=== PATIENT | male | born 1975 | race Caucasian/White ===

== ENCOUNTER 2017-07-16 18:57 | Emergency (ER) | payer OTHER ==
[2017-07-16 19:07] VITALS: BP 134/85; PULSE 109; RESP 18; TEMP 97.6
[2017-07-16] MEDS ORDERED: DIPH,PERTUS(ACELL)TETVAC-LF 0.5 ML VIAL IM ONE (19:34)
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
== END 2017-07-16 19:54 | disposition home or self-care (01) ==
LOC: EC 18:57
DX: S01.411A Laceration without foreign body of right cheek and temporomandibular area, initial encounter (principal); F17.200 Nicotine dependence, unspecified, uncomplicated; Z23 Encounter for immunization; V49.9XXA Car occupant (driver) (passenger) injured in unspecified traffic accident, initial encounter; Y92.89 Other specified places as the place of occurrence of the external cause
CPT/HCPCS: 12011; 90471; 90715; 99283

== ENCOUNTER 2019-04-16 02:09 | Emergency (ER) | payer OTHER ==
[2019-04-16 02:18] VITALS: BP 131/86; PULSE 104; RESP 20; TEMP 98.2
== END 2019-04-16 03:34 | disposition home or self-care (01) ==
LOC: EC 02:09
DX: Z02.89 Encounter for other administrative examinations (principal)

== ENCOUNTER 2021-02-23 01:26 | Emergency (ER) | payer BC ==
[2021-02-23 01:35] VITALS: BP 143/91; PULSE 78; RESP 18; TEMP 99.1
[2021-02-23] MEDS ORDERED: PENICILLIN VK 500MG STARTER 4 TAB BTL PO STA (02:02)
[2021-02-23] MEDS ORDERED: IBUPROFEN 600 MG TAB PO STA (02:27)
--- NOTE | 2021-02-23 02:28 | ED ---
General Adult HPI - General Chief complaint: Dental/Oral Stated complaint: Toothache/Confused Time Seen by Provider: 02/23/21 01:37 Source: patient, RN notes reviewed Mode of arrival: ambulatory Limitations: no limitations - History of Present Illness Initial comments: 45-year-old male without any significant past medical history presents to the emergency department for a chief complaint of facial pain. Patient reports that a couple weeks ago he broke a tooth on the right side of his mouth. States that he put putty in it to cover it himself. States he has been putting off seeing the dentist. Patient states the day on his home from work he started to feel sharp pain on the return of his face and radiated to his head and neck. States that the pain was making him feel dazed and confused. Therefore he presented to the emergency room. States actually feels much better at this time.Patient has no other complaints at this time including shortness of breath, chest pain, abdominal pain, nausea or vomiting, or visual changes. - Related Data Previous Rx's Medication Instructions Recorded Penicillin V Potassium [Pen Vee K] 500 mg PO Q6H 10 Days #40 tablet 02/23/21 Allergies Allergy/AdvReac Type Severity Reaction Status Date / Time No Known Allergies Allergy Verified 02/23/21 01:35 Review of Systems ROS Statement: Those systems with pertinent positive or pertinent negative responses have been documented in the HPI. ROS Other: All systems not noted in ROS Statement are negative. Past Medical History Past Medical History: No Reported History History of Any Multi-Drug Resistant Organisms: None Reported Past Surgical History: No Surgical Hx Reported Past Psychological History: No Psychological Hx Reported Smoking Status: Current every day smoker Past Alcohol Use History: Daily Past Drug Use History: None Reported General Exam Limitations: no limitations General appearance: alert, in no apparent distress Head exam: Present: atraumatic, normocephalic, normal inspection Eye exam: Present: normal appearance, PERRL, EOMI. Absent: scleral icterus, conjunctival injection, periorbital swelling ENT exam: Present: normal exam, mucous membranes moist. Absent: normal oropharynx (tooth 30 has large cavity. No purulent drainage. Tenderness to the lateral aspect with palpation. No sublingual edema.) Neck exam: Present: normal inspection, full ROM. Absent: tenderness (No anterior or midline cervical neck tenderness.), meningismus, lymphadenopathy, other (No edema or erythema) Respiratory exam: Present: normal lung sounds bilaterally. Absent: respiratory distress, wheezes, rales, rhonchi, stridor Cardiovascular Exam: Present: regular rate, normal rhythm, normal heart sounds. Absent: systolic murmur, diastolic murmur, rubs, gallop, clicks Neurological exam: Present: alert, oriented X3, normal gait, other (GCS 15) Course Vital Signs 02/23/21 01:30 Temperature 99.1 F Pulse Rate 78 Respiratory 18 Rate Blood Pressure 143/91 O2 Sat by Pulse 98 Oximetry Medical Decision Making - Medical Decision Making Vitals are stable. Patient is well-appearing. Patient does have a large cavity noted to tooth 30. This is likely the cause of patient's pain. This did improve significantly. We will start patient on penicillin. He will follow up with primary care and return for any worsening symptoms. Disposition Clinical Impression: Toothache Disposition: HOME SELF-CARE Condition: Good Instructions (If sedation given, give patient instructions): Toothache (ED) Additional Instructions: Please take antibiotic as directed. Take Motrin and Tylenol for pain. Follow- up with your doctor in one to 2 days. Return to the emergency room for any worsening symptoms. Prescriptions: Penicillin V Potassium [Pen Vee K] 500 mg PO Q6H 10 Days #40 tablet Is patient prescribed a controlled substance at d/c from ED?: No Referrals: Jolynn Alarcon MD [Primary Care Provider] - 1-2 days Time of Disposition: 02:27
== END 2021-02-23 02:44 | disposition home or self-care (01) ==
LOC: EC 01:26
DX: K08.89 Other specified disorders of teeth and supporting structures (principal); R41.0 Disorientation, unspecified; R51.9 Headache, unspecified; F17.200 Nicotine dependence, unspecified, uncomplicated
CPT/HCPCS: 99284